=== PATIENT | female | born 1930 | race Caucasian/White ===

== ENCOUNTER → 2016-04-23 | Outpatient (CLI) | payer OTHER ==
--- NOTE | 2016-04-24 09:15 | DI ---
CT BONE DENSITOMETRY OF THE SPINE AND HIP, 04/23/2016 11:00 AM : Clinical History: Asymptomatic post menopausal patient. Screening. Previous Exam: 04/12/2015. 3D Quantitative CT (QCT) Bone Mineral Densitometry: The [place] scans are normal. Low dose scans are sampled through the midbodies of L1 and L2. Average bone mineral density (BMD) is 49.1 mg/mL corresponding to a volumetric T-score of -4.6 and Z-score of -0.6. 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 Calcified gallstones are present. CT X-Ray Absorptiometry (CTXA) Bone Mineral Densitometry of the Left Hip: Total hip BMD: 530 mg/cm2 T-score: -3.4 Z-score: NA Femoral neck BMD: 532 mg/cm2 T-score: -2.4 Z-score: NA Note: T-scores of the spine and hip are discordant approximately 40% of the times. Changes in actual QCT or CTXA/DEXA measurements are more reliable in assessment of change in BMD status rather than kevin nges in T-scores. READIN. The QCT lumbar spine BMD value by ACR's 3D volumetric to 2D areal conversion categorizes this pat ient as having osteoporosis of the lumbar spine. The QCT spine T-score is -4.6, also indicating osteo porosis. 2. The CTXA total hip and femoral neck BMD T-scores are -3.4 and -2.4, respectively. 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
== END ==
LOC: CT 10:58
PROVIDERS: ATTEND Family Medicine
DX: M81.0 Age-related osteoporosis without current pathological fracture (principal)
CPT/HCPCS: 77078

== ENCOUNTER 2016-05-01 10:01 | Outpatient (CLI) | payer OTHER ==
[~2016-05-01 10:01] MED LIST: HEPARIN 500 UNIT/5 ML SYRINGE FOR CENTRAL LINE IVP PRN; NORMAL SALINE 10 ML SYRINGE FLUSH IVP PRN; Sodium Chloride 0.9% 50 ML IV PRN; Zoledronic/Mannitol/Water Inj 100 ML IV SCH
[2016-05-01 10:16] VITALS: TEMP 97.3
[2016-05-01 11:09] VITALS: RESP 20
== END 2016-05-01 11:10 | disposition home or self-care (01) ==
LOC: IV THERAPY 10:01
PROVIDERS: ATTEND Emergency Medicine
DX: M81.0 Age-related osteoporosis without current pathological fracture (principal)
CPT/HCPCS: 96365; 99211; J3489

== ENCOUNTER → 2016-09-11 | Outpatient (CLI) | payer OTHER ==
[2016-09-11 15:05] LABS: HEMOGLOBIN A1C 5.82 % (4.2-6.0)
== END ==
LOC: LAB 14:44
PROVIDERS: ATTEND Family Medicine
DX: R73.09 Other abnormal glucose (principal)
CPT/HCPCS: 36415; 83036